=== PATIENT | male | born 2000 | race Caucasian/White ===

== ENCOUNTER 2019-11-11 17:26 | Emergency (ER) | payer OTHER ==
[~2019-11-11] VITALS: Ht 188 cm; Wt 99.8 kg
[~2019-11-11 17:26] MED LIST: ACETAMINOPHEN-1 EAC1 OR; ACETAMINOPHEN-1 EAC1 PO; AUGMENTIN 500-1 EACH PO; HYDROCODONE-AP1 EAC6 PO; IBUPROFEN 800800 M1 PO; LIDOCAINE VISC100 M1 SWISH&SPIT; NOHOMEMEDICATIONS; PENICILLIN V P500 MG PO; VEETIDS 250MG250 M1 PO
[2019-11-11 17:55] VITALS: BP 135/80
[2019-11-11] MEDS ORDERED: AZITHROMYCIN 2250 MG PO (17:57)
[2019-11-11] MEDS ORDERED: SUPRAX400 M1 PO (17:57)
== END 2019-11-11 18:01 | disposition home or self-care (01) ==
LOC: M.ERS 17:26
DX: Z20.2 Contact with and (suspected) exposure to infections with a predominantly sexual mode of transmission (principal)